=== PATIENT | female | born 1965 | race Caucasian/White ===

== ENCOUNTER → 2021-04-17 | Outpatient (CLI) | payer OTHER, MEDICAID | LOC: M WHC 09:09 | PROVIDERS: ATTEND Pediatrics | DX: Z12.31 Encounter for screening mammogram for malignant neoplasm of breast (principal); Z78.0 Asymptomatic menopausal state; M85.851 Other specified disorders of bone density and structure, right thigh; M85.852 Other specified disorders of bone density and structure, left thigh; Z95.0 Presence of cardiac pacemaker ==